=== PATIENT | male | born 1990 | race Two or more races ===

== ENCOUNTER 2018-01-08 09:22 | Emergency (ER) | payer MEDICAID ==
[~2018-01-08] VITALS: Ht 180.3 cm; Wt 68.0 kg
--- NOTE | 2018-01-08 09:31 | NUR ---
AAOX3, CAME TO ER C/O SI WITH A PLAN TO HANG HIMSELF. RR IS EVEN AND UNLABORED WITH NAD NOTED. SKIN IS WARM AND DRY. PLACED ON SI PRECAUTION. AWAITING MD FOR EVAL.
--- NOTE | 2018-01-08 09:44 | NUR ---
URINE SPECIMEN COLLECTED , LABELED AND SENT TO LAB ,
[2018-01-08 09:47] LABS: APPEARANCE,URINE Slightly Cloudy (CLEAR); BILIRUBIN,URINE SMALL (NEGATIVE); BLOOD, URINE Negative Ery/uL (NEGATIVE); COLOR,URINE Dark (YELLOW); KETONES,URINE Trace (NEGATIVE); LEUKOCYTE ESTERASE ,URINE Negative (NEGATIVE); NITRITE, URINE Negative (NEGATIVE); PH,URINE 5.5 (5.0-8.0); PROTEIN,URINE 30 mg/dl (NEGATIVE); UGLUCOSE Negative (NEGATIVE)
[2018-01-08 09:49] LABS: BASOPHILS % (AUTO) 0.6 % (0.0-2.0); EOSINOPHILS % (AUTO) 1.4 % (0.0-6.0); HEMATOCRIT 48 % (39-51); HEMOGLOBIN 16.3 g/dL (13.5-17.5); LYMPHOCYTES # (AUTO) 1.8 /CMM (0.8-4.8); LYMPHOCYTES % (AUTO) 25.2 % (20.0-44.0); MEAN CORPUSCULAR HEMOGLOBIN 31 PG (26.0-33.0); MEAN CORPUSCULAR HGB CONC 34 g/dl (31.0-36.0); MEAN CORPUSCULAR VOLUME 91 fL (80-96); MONOCYTES # (AUTO) 0.4 /CMM (0.1-1.30); MONOCYTES % (AUTO) 5.3 % (2.0-12.0); NEUTROPHILS # (AUTO) 4.9 /CMM (1.8-8.9); NEUTROPHILS % (AUTO) 67.5 % (43.0-81.0); PLATELET COUNT (AUTO) 201 /CMM (150-450); RDW COEFFICIENT OF VARIATION 12.3 (11.5-15.0); RED BLOOD CELL COUNT(AUTO) 5.24 MIL/uL (4.5-6.0); WHITE BLOOD COUNT (AUTO) 7.2 K/uL (4.3-11.0)
[2018-01-08 09:59] LABS: CALCIUM, SERUM 9.2 mg/dL (8.5-10.1); CARBON DIOXIDE 30 mmol/L (21-32); CHLORIDE 103 mmol/L (98-107); CREATININE 1.2 mg/dL (0.6-1.3); GLUCOSE 94 mg/dL (74-106); POTASSIUM 3.8 mmol/L (3.5-5.1); SODIUM SERUM 140 mmol/L (136-145); UREA NITROGEN, BLOOD 17 mg/dL (7-18)
[2018-01-08 10:00] LABS: BACTERIA,URINE Moderate /HPF (None Seen); SQUAMOUS EPITHELIAL CELL,UR Moderate /HPF (None Seen)
[2018-01-08 10:01] LABS: MUCUS,URINE Moderate /LPF (None Seen); RBC,URINE 0-2 /HPF (0-2)
[2018-01-08 10:04] LABS: ALANINE AMINOTRANSFERASE 100 U/L (12-78); ALBUMIN 4.4 g/dL (3.4-5.0); ALCOHOL, BLOOD < 3 mg/dL (0-0); ALKALINE PHOSPHATASE 84 U/L (46-116); ASPARTATE AMINOTRANSFERASE 41 U/L (15-37); BILIRUBIN,DIRECT 0.3 mg/dL (0.0-0.2); BILIRUBIN,TOTAL 1.6 mg/dL (0.2-1.0)
[2018-01-08 10:07] LABS: ACETAMINOPHEN < 2 ug/ml (10-30)
--- NOTE | 2018-01-08 10:07 | NUR ---
CALLED MATTHEW HOANG AND LEFT HER A VOICEMAIL.
--- NOTE | 2018-01-08 14:27 | NUR ---
TRIED CALLING SO TAE CORDON FOR UPDATE ON PT, NO ANSWER. CANNOT LEAVE VOICE MESSAGE.
--- NOTE | 2018-01-08 15:27 | NUR ---
CALLED JESUS AT [facility] TO FOLLOW UP ON PT, HE SAID HE WILL CALL ME BACK IN 5 MIN.
--- NOTE | 2018-01-08 15:48 | NUR ---
CALLED FOR FOOD TRAY
[2018-01-08 16:00] VITALS: BP 125/40
--- NOTE | 2018-01-08 16:51 | NUR ---
CALLED JESUS AT [facility] TO FOLLOW UP ON PT, HE SAID HE WILL CALL HIS NURSING STAFF AND SEE WHAT IS TAKING THEM SO LONG AND HE WILL CALL ME BACK IN 2 MIN.
--- NOTE | 2018-01-08 17:42 | NUR ---
CALLED [phone] , SPOKE WITH [facility] FOR PT TRANSFER , PER [facility] THEY ARE STILL REVIEWING THE PATIENT FILE , AND THEY WILL CALL BACK IF EVERYTHING IS READY ,
--- NOTE | 2018-01-08 18:04 | NUR ---
CALLED [facility] @ [phone] SPOKE WITH FADY RUIZ , RPEORT GIVEN , PT WILL GO TO ROOM 627 -B , ALL QUESTION ANSWERED , WILL CONTINUE TO MONITOR
--- NOTE | 2018-01-08 18:09 | NUR ---
HOURLY ROUND DONE , SAFETY MEASURES PROVIDED, RN NEAR BY THE BEDSIDE , WILL CONTINUE TO MONITOR
--- NOTE | 2018-01-08 18:30 | NUR ---
CALLED [facility] FOR TRANSP[facility], ETA [phone], TRIP #[id number]
--- NOTE | 2018-01-08 19:22 | NUR ---
REPORT GIVEN TO BAM PADILLA FOR ANITRA.
--- NOTE | 2018-01-08 19:30 | NUR ---
PT IS WATCHING THE TV AND APPEARS TO BE RESTING COMFORTABLE.
--- NOTE | 2018-01-08 19:56 | NUR ---
REPORT GIVEN TO EMT FOR AMBULANZ. PT BEING TRANSFERED TO [facility]. VSS
--- NOTE | 2018-01-08 19:56 | NUR ---
REPORT GIVEN TO EMT FOR AMBULANZ. PT BEING TRANSFERED TO [facility]. VSS
== END 2018-01-08 20:00 ==
LOC: ER 09:27
DX: F32.9 Major depressive disorder, single episode, unspecified (principal); F41.9 Anxiety disorder, unspecified
CPT/HCPCS: 36415; 80048; 80076; 80305; 80329; 81001; 85025; 87086; 99285; A4606; G0480 ×2; Z7610; 81000-TC